=== PATIENT | female | born 1990 | race Caucasian/White ===

== ENCOUNTER 2018-01-30 15:15 | Emergency (ER) | payer BC ==
--- NOTE | 2018-01-30 15:37 | ERPHSYRPT ---
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 she twisted left ankle. Occurred: just prior to arrival Quality: aching Severity of Pain-Max: moderate Severity of Pain-Current: mild Lower Extremities Pain: ankle: left Modifying Factors: Improves With: movement (worsens tenderness) Associated Symptoms: No dizzy, No fainted, No seizure, No snapping sensation, No popping sensation Allergies/Adverse Reactions: No Known Drug Allergies Allergy (Verified 01/30/18 15:32) Home Medications: No Reportable Medications [No Reported Medications] 03/22/15 [History] Hx Tetanus, Diphtheria Vaccination/Date Given: No Hx Influenza Vaccination/Date Given: No Hx Pneumococcal Vaccination/Date Given: No - Review of Systems Constitutional: No Symptoms Eyes: No Symptoms Ears, Nose, & Throat: No Symptoms Respiratory: No Symptoms Cardiac: No Symptoms Abdominal/Gastrointestinal: No Symptoms Genitourinary Symptoms: No Symptoms Musculoskeletal: Fall, Injury (left ankle) Skin: No Symptoms 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: No Symptoms Psychological: No Symptoms Endocrine: No Symptoms Hematologic/Lymphatic: No Symptoms Immunological/Allergic: No Symptoms All Other Systems: Reviewed and Negative - Past Medical History Pertinent Past Medical History: No 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 History: No Pertinent History ENT History: No Pertinent History Cardiac History: No Pertinent History Respiratory History: No Pertinent History Endocrine Medical History: No Pertinent History Musculoskeletal History: Fractures GI Medical History: No Pertinent History History: No Pertinent History Psycho-Social History: No Pertinent History Female Reproductive Disorders: No Pertinent History - Past Surgical History Past Surgical History: Yes Neuro Surgical History: No Pertinent History Cardiac: No Pertinent History Respiratory: No Pertinent History Gastrointestinal: Cholecystectomy Genitourinary: No Pertinent History Musculoskeletal: Orthopedic Surgery Female Surgical History: No Pertinent History Other Surgical History: TONSILLECTOMY - Social History Smoking Status: Never smoker Exposure to second hand smoke: No Drug Use: none Patient Lives Alone: No - Female History Hx Now: No - Nursing Vital Signs Nursing Vital Signs: Initial Vital Signs Temperature 98.1 F 01/30/18 15:24 Pulse Rate 68 01/30/18 15:24 Respiratory Rate 18 01/30/18 15:24 Blood Pressure 160/88 01/30/18 15:24 O2 Sat by Pulse Oximetry 98 01/30/18 15:24 Pain Scale Pain Intensity 8 - Physical Exam General Appearance: no apparent distress, alert Eyes, Ears, Nose, Throat Exam: normal ENT inspection, moist mucous membranes Neck Exam: normal inspection, non-tender, supple, full range of motion Cardiovascular/Respiratory Exam: chest non-tender, normal breath sounds Gastrointestinal/Abdominal Exam: non-tender Back Exam: normal inspection, normal range of motion, No CVA tenderness, No vertebral tenderness Hips Exam: bilateral: non-tender, normal inspection, normal range of motion, no evidence of injury Legs Exam: bilateral leg: non-tender, normal inspection, normal range of motion , no evidence of injury Knees Exam: bilateral knee: non-tender, normal inspection, normal range of motion, no evidence of injury Ankle Exam: right ankle: non-tender, normal inspection, normal range of motion, no evidence of injury, left ankle: soft tissue tenderness, swelling Foot Exam: bilateral foot: non-tender, normal inspection, normal range of motion , no evidence of injury Neuro/Tendon Exam: normal sensation, normal motor functions, normal tendon functions, no evidence tendon injury Mental Status Exam: alert, oriented x 3, cooperative Skin Exam: normal color, warm, dry SpO2 Interpretation: normal SpO2: 98 Oxygen Delivery: Room Air - Course Nursing assessment & vital signs reviewed: Yes Ordered Tests: Active Orders 24 hr Category Date Time Status Cold Application STAT Care 01/30/18 15:26 Active ANKLE (3 VIEWS) Stat Exams 01/30/18 15:37 Completed Medication Summary Discontinued Medications Generic Name Dose Route Start Last Admin Trade Name Freq PRN Reason Stop Dose Admin Hydrocodone Bitart/Acetaminophen 1 tab 01/30/18 16:37 Amasa 5/325 Mg PO 01/30/18 16:38 STAT ONE - Progress Progress: pain not gone completely, re-examined Progress Note: 01/30/18 16:55 left ankle xray- no acute fx or dislocation Counseled pt/family regarding: diagnosis, need for follow-up, rad results - Departure Time of Disposition: 16:55 Departure Disposition: Home Clinical Impression: Ankle sprain Condition: Stable Critical Care Time: No Referrals: GIO HOBSON [Primary Care Provider] - Additional Instructions: use tylenol and ibuprofen for pain. may weight bear as tolerated. wear sophia wrap and use crutches for comfort. follow up with primary doctor for persistent symptoms
[2018-01-30 16:22] VITALS: BP 142/99; PULSE 60
[2018-01-30] MEDS ORDERED: NORCO 5/325 MG PO ONE (16:37)
--- NOTE | 2018-01-30 16:39 | XRAY ---
Indication: Lateral pain following injury. Comparison: February 28, 2011. 3 views of the left ankle demonstrates stable small distal fibula shaft bone island. No new/acute bony, articular, or soft tissue abnormalities.
[2018-01-30] MEDS ORDERED: NORCO 5/325 MG ONE (16:54)
[2018-01-30 16:57] VITALS: O2SAT 98
== END 2018-01-30 17:28 | disposition home or self-care (01) ==
LOC: ED 15:15
DX: S93.402A Sprain of unspecified ligament of left ankle, initial encounter (principal); M25.572 Pain in left ankle and joints of left foot; X50.1XXA Overexertion from prolonged static or awkward postures, initial encounter; Y93.01 Activity, walking, marching and hiking
CPT/HCPCS: 73610; 99284; A9270

== ENCOUNTER 2019-03-17 19:30 | Emergency (ER) | payer BC ==
[2019-03-17] MEDS ORDERED: Sodium Chloride 0.9% 1000 ML 1,000 ML IV STA (19:41)
[2019-03-17] MEDS ORDERED: Zofran 4 MG/2 ML VIAL IV ONE (19:41)
[2019-03-17] MEDS ORDERED: PROVENTIL Solution 2.5 MG/0.5 ML IH ONE (19:44)
[2019-03-17] MEDS ORDERED: Sodium Chloride 0.9% 1000 ML 1,000 ML ONE (19:48)
[2019-03-17] MEDS ORDERED: Zofran 4 MG/2 ML VIAL ONE (19:48)
--- NOTE | 2019-03-17 19:51 | ERPHSYRPT ---
- History of Present Illness Time Seen by Provider: 03/17/19 19:41 Source: patient Physician History: Pt is here with c/c of numbness and tingling of all extremities. Pt can not breath thru her nose and is breathing more rapidly than normal. Pt was here diagnosed Influenza positive on Monday and after that has noticed that her extremities are numb and tingly. Pt also is on Tamiflu 75 mgs twice daily and has been since monday. Pt is coughing some and noting it difficult to breath thru her nose. Pt has not had an inhaler or nose spray. Pt notes that there is no weakness in any of her extremities and there is no difficulty feeling or sensing with her fingers. Timing/Duration: today (Pt is ) Severity: mild Modifying Factors: Improves With: other ( mouth breathing fast may worsen as pt comes in doing this) Associated Symptoms: shortness of breath, cough Allergies/Adverse Reactions: No Known Drug Allergies Allergy (Verified 03/17/19 19:46) Home Medications: Oseltamivir 75 mg [Tamiflu 75MG Capsule] 75 mg PO BID 03/17/19 [History] Hx Tetanus, Diphtheria Vaccination/Date Given: No Hx Influenza Vaccination/Date Given: No Hx Pneumococcal Vaccination/Date Given: No - Review of Systems Constitutional: Fatigue, Weakness Eyes: No Symptoms Ears, Nose, & Throat: No Symptoms Respiratory: Cough, Dyspnea, Other (cont breath thru her nose) Abdominal/Gastrointestinal: No Symptoms Genitourinary Symptoms: No Symptoms Musculoskeletal: No Symptoms Skin: No Symptoms 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: Parasthesia (of all 4 extremities.) Psychological: Anxiety Endocrine: No Symptoms Immunological/Allergic: No Symptoms All Other Systems: Reviewed and Negative - Past Medical History Pertinent Past Medical History: No 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 History: No Pertinent History ENT History: No Pertinent History Cardiac History: No Pertinent History Respiratory History: No Pertinent History Endocrine Medical History: No Pertinent History Musculoskeletal History: Fractures GI Medical History: No Pertinent History History: No Pertinent History Psycho-Social History: No Pertinent History Female Reproductive Disorders: No Pertinent History - Past Surgical History Past Surgical History: Yes Neuro Surgical History: No Pertinent History Cardiac: No Pertinent History Respiratory: No Pertinent History Gastrointestinal: Cholecystectomy Genitourinary: No Pertinent History Musculoskeletal: Orthopedic Surgery Female Surgical History: No Pertinent History Other Surgical History: TONSILLECTOMY - Social History Smoking Status: Never smoker Exposure to second hand smoke: No Drug Use: none Patient Lives Alone: No - Nursing Vital Signs Nursing Vital Signs: Initial Vital Signs Temperature 97.1 F 03/17/19 19:35 Pulse Rate 75 03/17/19 19:35 Respiratory Rate 24 03/17/19 19:35 Blood Pressure 143/94 03/17/19 19:35 O2 Sat by Pulse Oximetry 97 03/17/19 19:35 Pain Scale Pain Intensity 8 - Physical Exam General Appearance: mild distress, anxiety, obese Eye Exam: PERRL/EOMI, eyes nml inspection Ears, Nose, Throat Exam: normal ENT inspection, TMs normal, pharynx normal, moist mucous membranes, other (Pt is mouth breathing and tachepnic by her own accord but not by oxygen demand) Neck Exam: normal inspection, non-tender, supple, No meningismus Respiratory Exam: normal breath sounds, lungs clear Cardiovascular Exam: regular rate/rhythm, normal heart sounds, normal peripheral pulses, No murmur, No friction rub Gastrointestinal/Abdomen Exam: soft, normal bowel sounds, No tenderness Pelvic Exam: not done Rectal Exam: not done Back Exam: normal inspection Extremity Exam: normal inspection, normal range of motion, pelvis stable, parasthesia (pt didn't have any difficulty feeling anything we asked her to do. ) Ordered Tests: Active Orders 24 hr Category Date Time Status EKG-ER Only STAT Care 03/17/19 19:46 Active IV Insertion STAT Care 03/17/19 19:46 Active CHEST 2 VIEWS (PA AND LAT) Stat Exams 03/17/19 19:55 Taken CBC W DIFF Stat Lab 03/17/19 19:59 Completed CMP Stat Lab 03/17/19 19:59 Completed HCG,QUALITATIVE URINE Stat Lab 03/17/19 19:59 Completed Peak Expiratory Flow Rate ONCE RT 03/17/19 20:23 Active Respiratory Therapy Assessment DAILY RT 03/17/19 20:23 Active Medication Summary Discontinued Medications Generic Name Dose Route Start Last Admin Trade Name Freq PRN Reason Stop Dose Admin Albuterol Sulfate 2.5 mg 03/17/19 19:44 03/17/19 19:58 Proventil Solution 2.5 Mg/0.5 Ml IH 03/17/19 19:45 2.5 mg STAT ONE Administration Albuterol Sulfate Confirm 03/17/19 19:55 Proventil 2.5 Mg/3 Ml Neb Administered 12/29/19 19:56 Dose 2.5 mg IH .STK-MED ONE Benzonatate 100 mg 03/17/19 21:08 03/17/19 21:22 Tessalon Perles 100 Mg PO 04/16/19 21:07 100 mg TID PRN PRN Administration COUGH Benzonatate Confirm 03/17/19 21:18 Tessalon Perles 100 Mg Administered 03/17/19 21:19 Dose 100 mg PO .STK-MED ONE Fluticasone Propionate 2 gm 03/17/19 21:06 03/17/19 21:22 Flonase Nasal NS 03/17/19 21:07 2 gm DAILY STA Administration Fluticasone Propionate Confirm 03/17/19 21:18 Flonase Nasal Administered 03/17/19 21:19 Dose 16 gm NS .STK-MED ONE Sodium Chloride 1,000 mls @ 999 mls/hr 03/17/19 19:41 03/17/19 20:54 Sodium Chloride 0.9% 1000 Ml IV 03/17/19 20:41 Infused .Q1H1M STA Infusion Sodium Chloride Confirm 03/17/19 19:48 Sodium Chloride 0.9% 1000 Ml Administered 03/17/19 19:49 Dose 1,000 mls @ ud .ROUTE .STK-MED ONE Loratadine 10 mg 03/17/19 21:08 03/17/19 21:22 Claritin 10 Mg PO 03/17/19 21:09 10 mg STAT ONE Administration Ondansetron HCl 4 mg 03/17/19 19:41 03/17/19 19:53 Zofran 4 Mg/2 Ml Vial IV 03/17/19 19:42 4 mg STAT ONE Administration Ondansetron HCl Confirm 03/17/19 19:48 Zofran 4 Mg/2 Ml Vial Administered 03/17/19 19:49 Dose 4 mg .ROUTE .STK-MED ONE Potassium Chloride 20 meq 03/17/19 20:23 03/17/19 20:29 Klor Con 10 Meq PO 03/17/19 20:24 20 meq STAT ONE Administration Potassium Chloride Confirm 03/17/19 20:25 Klor Con 10 Meq Administered 03/17/19 20:26 Dose 20 meq PO .STK-MED ONE Lab/Rad Data: Laboratory Result Diagrams 03/17/19 19:59 03/17/19 19:59 Laboratory Results 03/17/19 03/17/19 03/17/19 Range/Units 19:59 19:59 19:59 WBC 10.7 H (4.0-10.5) K/mm3 RBC 4.24 (4.1-5.4) M/mm3 Hgb 12.9 (12.0-16.0) gm/dl Hct 38.8 (35-47) % MCV 91.5 (78-100) fl MCH 30.4 (26-32) pg MCHC 33.2 (32-36) g/dl RDW 13.9 (11.5-14.0) % Plt Count 267 (150-450) K/mm3 MPV 9.9 H (6-9.5) fl Gran % 71.1 H (36.0-66.0) % Eos # (Auto) 0.03 (0-0.5) Absolute Lymphs (auto) 1.80 (1.0-4.6) Absolute Monos (auto) 1.23 (0.0-1.3) Lymphocytes % 16.8 L (24.0-44.0) % Monocytes % 11.5 (0.0-12.0) % Eosinophils % 0.3 (0.00-5.0) % Basophils % 0.3 (0.0-0.4) % Absolute Granulocytes 7.62 H (1.4-6.9) Basophils # 0.03 (0-0.4) Sodium 140 (137-145) mmol/L Potassium 3.3 L (3.5-5.1) mmol/L Chloride 105 (98-107) mmol/L Carbon Dioxide 27 (22-30) mmol/L Anion Gap 11.8 (5-15) MEQ/L BUN 10 (7-17) mg/dL Creatinine 0.56 (0.52-1.04) mg/dL Estimated GFR > 60.0 ML/MIN Glucose 103 (74-106) mg/dL Calcium 8.9 (8.4-10.2) mg/dL Total Bilirubin 0.30 (0.2-1.3) mg/dL AST 25 (14-36) U/L ALT 21 (0-35) U/L Alkaline Phosphatase 46 (38-126) U/L Serum Total Protein 7.7 (6.3-8.2) g/dL Albumin 3.9 (3.5-5.0) g/dL Urine HCG, Qual NEGATIVE (Negative) - Departure Departure Disposition: Home Clinical Impression: Influenza A, Hypokalemia, Complaint of paresthesia, Hyperventilation Condition: Good Critical Care Time: No Referrals: GIO HOBSON [Primary Care Provider] - Instructions: Cough, Adult (DC) Additional Instructions: Pt is here with known influenza and hypokalemia. Pt had parasthesias after mouth breathing and hyperventilating a bit. Pt. has improved after an albuterol neb but does not feel that an inhaler is needed for home. She is feeling better and has less numbness and tingling after here and breathing treatment. Pt will need to drink plenty of non-caffienated fluids and continue her meds. Pt may take Shauna D for the congestion and tesselon perles for the cough, and Flonase for the nasal congestion. Pt should eat healthy and get extra rest. You are infectious to others so you still need to avoid being out in public places for a couple more days. Follow up with your primary care doctor in 3-5 days if not improving or return to the Er with emergent medical problems. You will want to have your primary care doctor recheck you potassium in a week or sdo to make sure you are maintaining your normal potassium level. Prescriptions: Benzonatate [Tessalon Perle] 100 mg PO Q8H PRN PRN #21 capsule PRN Reason: Cough Fexofenadine/Pseudoephedrine [Shauna-D 12 Hour Tablet] 1 each PO [id number] PRN 7 Days #14 tab.er.12h PRN Reason: Sinus Congestion
[2019-03-17] MEDS ORDERED: PROVENTIL 2.5 MG/3 ML NEB IH ONE (19:55)
[2019-03-17 20:02] LABS: Absolute Neutrophil Ct (ANC) 7.62 (1.4-6.9); BASOPHIL % 0.3 % (0.0-0.4); Basophil (Absolute #) 0.03 (0-0.4); Eosinophil % 0.3 % (0.00-5.0); Eosinophil (Absolute #) 0.03 (0-0.5); Hematocrit 38.8 % (35-47); Hemoglobin 12.9 gm/dl (12.0-16.0); Lymphocytes % 16.8 % (24.0-44.0); Mean Cell Volume 91.5 fl (78-100); Mean Corpuscular Hemoglobin 30.4 pg (26-32); Mean Corpuscular Hgb Concent. 33.2 g/dl (32-36); Mean Platelet Volume 9.9 fl (6-9.5); Monocyte (Absolute #) 1.23 (0.0-1.3); Monocytes % 11.5 % (0.0-12.0); Neutrophil % 71.1 % (36.0-66.0); Platelet Count 267 K/mm3 (150-450); Red Blood Count 4.24 M/mm3 (4.1-5.4); Red Cell Distribution Width 13.9 % (11.5-14.0); White Blood Count 10.7 K/mm3 (4.0-10.5)
[2019-03-17 20:14] LABS: ALBUMIN 3.9 g/dL (3.5-5.0); ALKALINE PHOSPHATASE 46 U/L (38-126); ANION GAP 11.8 MEQ/L (5-15); BLOOD UREA NITROGEN 10 mg/dL (7-17); CHLORIDE 105 mmol/L (98-107); Calcium 8.9 mg/dL (8.4-10.2); Carbon Dioxide 27 mmol/L (22-30); Creatinine 1 0.56 mg/dL (0.52-1.04); Glucose 103 mg/dL (74-106); Potassium 3.3 mmol/L (3.5-5.1); SGOT/AST 25 U/L (14-36); SGPT/ALT 21 U/L (0-35); SODIUM 140 mmol/L (137-145); Total Protein 7.7 g/dL (6.3-8.2)
[2019-03-17] MEDS ORDERED: Klor Con 10 MEQ PO ONE ×2 (20:23→20:25)
[2019-03-17] MEDS ORDERED: Flonase NASAL NS STA (21:06)
[2019-03-17] MEDS ORDERED: Tessalon Perles 100 MG PO PRN (21:08)
[2019-03-17] MEDS ORDERED: CLARITIN 10 MG PO ONE (21:08)
[2019-03-17] MEDS ORDERED: Tessalon Perles 100 MG PO ONE (21:18)
[2019-03-17] MEDS ORDERED: Flonase NASAL NS ONE (21:18)
[2019-03-17 21:48] VITALS: BP 98/65; PULSE 84; O2SAT 97
--- NOTE | 2019-03-18 08:40 | XRAY ---
Indication: Cough. Influenza. Comparison: December 01, 2015. PA/lateral chest again demonstrates normal heart and lung with left upper lobe calcified granuloma. Bony thorax intact. No new/acute findings.
== END 2019-03-17 21:55 | disposition home or self-care (01) ==
LOC: ED 19:30
DX: J10.1 Influenza due to other identified influenza virus with other respiratory manifestations (principal); E87.6 Hypokalemia; R20.2 Paresthesia of skin; R06.4 Hyperventilation
CPT/HCPCS: 36000; 36415; 71046; 80053; 84703; 85025; 93005; 94150; 94640; 96360; 96374; 99284; J2405; J7609; A9270-GY

== ENCOUNTER 2020-10-16 19:37 | Emergency (ER) | payer BC ==
--- NOTE | 2020-10-16 20:20 | ERPHSYRPT ---
- History of Present Illness Time Seen by Provider: 10/16/20 20:18 Source: patient Exam Limitations: no limitations Patient Subjective Stated Complaint: "In emotionally numb." Triage Nursing Assessment: Patient reported that she recently had thoughts about killing herself. She reported that she is under a lot of stress because her family does not want her to her current fiance. She denied any plans for suicide or past attempts. Denied any alcohol or drugs. She reported that the stress is getting to be too much for her. Fiance is in the room and supportive. She currently does not have a counselor. Her concern is that she has a 5 y/o at home and does not want to leave her. Pupils 3mm bilateral. Symmetrical chest expansion. Heart tones RRR. Lungs vesicular. Peripheral pulses +3 bilateral. Gait steady without complications. Physician History: Patient reported that she recently had thoughts about killing herself. She reported that she is under a lot of stress because her family does not want her to her current fiance. She denied any plans for suicide or past attempts. Denied any alcohol or drugs. She reported that the stress is getting to be too much for her. Fiance is in the room and supportive. She currently does not have a counselor. Her concern is that she has a 5 y/o at home and does not want to leave her. Timing/Duration: yesterday Severity of Symptoms-Max: moderate Severity of Symptoms-Current: moderate Context related to: parent Suicidal thoughts: gesture Associated Symptoms: angry, agitated, depressed, frustrated, suicidal ideation, No impaired concentration, No ingestion, No insomnia, No paranoid Previous symptoms: no prior history Allergies/Adverse Reactions: No Known Drug Allergies Allergy (Verified 10/16/20 19:54) Home Medications: No Reportable Medications [No Reported Medications] 10/16/20 [History] Hx Tetanus, Diphtheria Vaccination/Date Given: Yes Hx Influenza Vaccination/Date Given: Yes Hx Pneumococcal Vaccination/Date Given: No Travel Risk - International Travel Have you traveled outside of the country in past 3 weeks: No - Coronavirus Screening Are you exhibiting any of the following symptoms?: No Close contact with a COVID-19 positive Pt in past 14-21 Days: No - Vaccine Status Have you recieved a Covid-19 vaccination: Yes 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[employer] - Vaccination Dates Dates if Unknown: May - Past Medical History Pertinent Past Medical History: No 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 History: No Pertinent History ENT History: No Pertinent History Cardiac History: No Pertinent History Respiratory History: No Pertinent History Endocrine Medical History: No Pertinent History Musculoskeletal History: Fractures GI Medical History: No Pertinent History History: No Pertinent History Psycho-Social History: No Pertinent History Female Reproductive Disorders: No Pertinent History - Past Surgical History Past Surgical History: Yes Neuro Surgical History: No Pertinent History Cardiac: No Pertinent History Respiratory: No Pertinent History Gastrointestinal: Cholecystectomy Genitourinary: No Pertinent History Musculoskeletal: Orthopedic Surgery Female Surgical History: No Pertinent History Other Surgical History: TONSILLECTOMY - Social History Smoking Status: Never smoker Exposure to second hand smoke: No Drug Use: none Patient Lives Alone: No - Female History Hx Last Menstrual Period: 10/12/20 Hx Now: No - Review of Systems Constitutional: No Fever, No Chills Eyes: No Symptoms Ears, Nose, & Throat: No Symptoms Respiratory: No Cough, No Dyspnea Cardiac: No Chest Pain, No Edema, No Syncope Abdominal/Gastrointestinal: No Abdominal Pain, No Nausea, No Vomiting, No Diarrhea Genitourinary Symptoms: No Dysuria Musculoskeletal: No Back Pain, No Neck Pain Skin: No Rash 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: No Dizziness, No Focal Weakness, No Sensory Changes Psychological: Anxiety, Depression, Suicidal Ideations, Emotional Lability Endocrine: No Symptoms All Other Systems: Reviewed and Negative - Nursing Vital Signs Nursing Vital Signs: Initial Vital Signs Temperature 98.3 F 10/16/20 19:37 Pulse Rate 62 10/16/20 19:37 Respiratory Rate 20 10/16/20 19:37 Blood Pressure 149/91 10/16/20 19:37 O2 Sat by Pulse Oximetry 100 10/16/20 19:37 Pain Scale Pain Intensity 0 - Physical Exam General Appearance: no apparent distress Eyes, Ears, Nose, Throat Exam: normal ENT inspection, moist mucous membranes Neck Exam: normal inspection, non-tender, supple Respiratory Exam: normal breath sounds, lungs clear, No respiratory distress Cardiovascular Exam: regular rate/rhythm, No edema Gastrointestinal/Abdominal Exam: soft, No tenderness, No distention Extremities Exam: normal inspection, normal range of motion, No evidence of injury, No edema Current Suicidality: denies suicide plan 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: 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, 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, oriented x 3 Appearance: appropriate appearance Behavior/Eye Contact/Speech: alert & cooperative, normal speech Thoughts/Hallucinations: normal thought pattern Skin Exam: normal color, warm, dry, No rash SpO2 Interpretation: normal SpO2: 100 O2 Delivery: Room Air - Course Nursing assessment & vital signs reviewed: Yes Ordered Tests: Active Orders 24 hr Category Date Time Status Psychiatric Consult STAT Cons 10/16/20 20:09 Active ACETAMINOPHEN Stat Lab 10/16/20 20:21 Completed CBC W DIFF Stat Lab 10/16/20 20:21 Completed CMP Stat Lab 10/16/20 20:21 Completed CULTURE,URINE Stat Lab 10/16/20 20:09 Received ETHYL ALCOHOL Stat Lab 10/16/20 20:21 Completed HCG QUALITATIVE,SERUM Stat Lab 10/16/20 20:21 Completed SALICYLATE Stat Lab 10/16/20 20:21 Completed UA W/RFX UR CULTURE Stat Lab 10/16/20 20:09 Completed Urine Triage Profile Stat Lab 10/16/20 20:09 Completed Lab/Rad Data: Laboratory Result Diagrams 10/16/20 20:21 10/16/20 20:21 Laboratory Results 10/16/20 10/16/20 10/16/20 Range/Units 20:21 20:21 20:21 WBC 10.3 (4.0-10.5) K/mm3 RBC 4.30 (4.1-5.4) M/mm3 Hgb 12.8 (12.0-16.0) gm/dl Hct 40.2 (35-47) % MCV 93.5 (78-100) fl MCH 29.8 (26-32) pg MCHC 31.8 L (32-36) g/dl RDW 13.2 (11.5-14.0) % Plt Count 408 (150-450) K/mm3 MPV 9.2 (7.5-11.0) fl Gran % 65.5 (36.0-66.0) % Eos # (Auto) 0.11 (0-0.5) Absolute Lymphs (auto) 2.52 (1.0-4.6) Absolute Monos (auto) 0.87 (0.0-1.3) Lymphocytes % 24.5 (24.0-44.0) % Monocytes % 8.5 (0.0-12.0) % Eosinophils % 1.1 (0.00-5.0) % Basophils % 0.4 (0.0-0.4) % Absolute Granulocytes 6.74 (1.4-6.9) Basophils # 0.04 (0-0.4) Sodium 138 (137-145) mmol/L Potassium 3.8 (3.5-5.1) mmol/L Chloride 102 (98-107) mmol/L Carbon Dioxide 23 (22-30) mmol/L Anion Gap 16.5 H (5-15) MEQ/L BUN 11 (7-17) mg/dL Creatinine 0.67 (0.52-1.04) mg/dL Estimated GFR > 60.0 ML/MIN Glucose 89 (74-106) mg/dL Calcium 9.2 (8.4-10.2) mg/dL Total Bilirubin 0.20 (0.2-1.3) mg/dL AST 30 (14-36) U/L ALT 19 (0-35) U/L Alkaline Phosphatase 68 (38-126) U/L Serum Total Protein 8.3 H (6.3-8.2) g/dL Albumin 4.6 (3.5-5.0) g/dL Serum , Qual NEGATIVE (Negative) Urine Color (YELLOW) Urine Appearance (CLEAR) Urine pH (5-6) Ur Specific [place] (1.005-1.025) Urine Protein (Negative) Urine Ketones (NEGATIVE) Urine Blood (0-5) Jayson/ul Urine Nitrite (NEGATIVE) Urine Bilirubin (NEGATIVE) Urine Urobilinogen (0-1) mg/dL Ur Leukocyte Esterase (NEGATIVE) Urine WBC (Auto) (0-5) /HPF Urine RBC (Auto) (0-2) /HPF U Epithel Cells (Auto) (FEW) /HPF Urine Bacteria (Auto) (NEGATIVE) /HPF Urine Mucus (Auto) (NEGATIVE) /HPF Urine Culture Reflexed (NO) Urine Glucose (NEGATIVE) mg/dL Salicylates < 1.0 L (2-20) mg/dL Urine Opiates Level (NEGATIVE) Ur Methadone (NEGATIVE) Acetaminophen < 10 L (10-30) ug/ml Urine Barbiturates (NEGATIVE) Ur Phencyclidine (PCP) (NEGATIVE) Urine Amphetamine (NEGATIVE) U Benzodiazepine Level (NEGATIVE) Urine Cocaine (NEGATIVE) Urine Marijuana (THC) (NEGATIVE) Ethyl Alcohol < 10 (0-10) mg/dL SARS-CoV-2 (PCR) (NEGATIVE) 10/16/20 10/16/20 10/16/20 Range/Units 20:15 20:09 20:09 WBC (4.0-10.5) K/mm3 RBC (4.1-5.4) M/mm3 Hgb (12.0-16.0) gm/dl Hct (35-47) % MCV (78-100) fl MCH (26-32) pg MCHC (32-36) g/dl RDW (11.5-14.0) % Plt Count (150-450) K/mm3 MPV (7.5-11.0) fl Gran % (36.0-66.0) % Eos # (Auto) (0-0.5) Absolute Lymphs (auto) (1.0-4.6) Absolute Monos (auto) (0.0-1.3) Lymphocytes % (24.0-44.0) % Monocytes % (0.0-12.0) % Eosinophils % (0.00-5.0) % Basophils % (0.0-0.4) % Absolute Granulocytes (1.4-6.9) Basophils # (0-0.4) Sodium (137-145) mmol/L Potassium (3.5-5.1) mmol/L Chloride (98-107) mmol/L Carbon Dioxide (22-30) mmol/L Anion Gap (5-15) MEQ/L BUN (7-17) mg/dL Creatinine (0.52-1.04) mg/dL Estimated GFR ML/MIN Glucose (74-106) mg/dL Calcium (8.4-10.2) mg/dL Total Bilirubin (0.2-1.3) mg/dL AST (14-36) U/L ALT (0-35) U/L Alkaline Phosphatase (38-126) U/L Serum Total Protein (6.3-8.2) g/dL Albumin (3.5-5.0) g/dL Serum , Qual (Negative) Urine Color YELLOW (YELLOW) Urine Appearance CLEAR (CLEAR) Urine pH 5.0 (5-6) Ur Specific [place] 1.011 (1.005-1.025) Urine Protein NEGATIVE (Negative) Urine Ketones NEGATIVE (NEGATIVE) Urine Blood MODERATE (0-5) Jayson/ul Urine Nitrite NEGATIVE (NEGATIVE) Urine Bilirubin NEGATIVE (NEGATIVE) Urine Urobilinogen NEGATIVE (0-1) mg/dL Ur Leukocyte Esterase LARGE (NEGATIVE) Urine WBC (Auto) NONE (0-5) /HPF Urine RBC (Auto) 0-2 (0-2) /HPF U Epithel Cells (Auto) RARE (FEW) /HPF Urine Bacteria (Auto) NONE (NEGATIVE) /HPF Urine Mucus (Auto) SLIGHT (NEGATIVE) /HPF Urine Culture Reflexed YES (NO) Urine Glucose NEGATIVE (NEGATIVE) mg/dL Salicylates (2-20) mg/dL Urine Opiates Level NEGATIVE (NEGATIVE) Ur Methadone NEGATIVE (NEGATIVE) Acetaminophen (10-30) ug/ml Urine Barbiturates NEGATIVE (NEGATIVE) Ur Phencyclidine (PCP) NEGATIVE (NEGATIVE) Urine Amphetamine NEGATIVE (NEGATIVE) U Benzodiazepine Level NEGATIVE (NEGATIVE) Urine Cocaine NEGATIVE (NEGATIVE) Urine Marijuana (THC) NEGATIVE (NEGATIVE) Ethyl Alcohol (0-10) mg/dL SARS-CoV-2 (PCR) NEGATIVE (NEGATIVE) - Progress Progress: improved Counseled pt/family regarding: lab results, diagnosis, need for follow-up - Departure Departure Disposition: Home Clinical Impression: Acute stress reaction causing mixed disturbance of emotion and conduct Condition: Stable Critical Care Time: No Referrals: GIO HOBSON [Primary Care Provider] - Instructions: Bipolar Disorder (DC) Additional Instructions: POWER QUINONEZ was seen on 10/16/20 n the Emergency Room. At that time you were treated for an emergent condition, during your visit Laboratory, Radiology and/or other procedures may have been ordered. It is very important that you follow-up with your Primary Care Physician GIO HOBSON within the next 24-48 hours to review your Emergency Room visit and the final results of testing that was ordered. Some test results such as Urine Cultures, Blood Cultures, and other cultures if ordered will not be finalized for 24-48 hours. If you do not have a Primary Care Provider please call the medical records department at [phone] ext [phone] to obtain a copy of your results or you may sign into our patient portal to obtain these results by visiting us @ [email or web address] and completing the following steps: 1. Click on the Patient Portal link 2. Click the Patient Self Enrollment Link to complete the enrollment form and entering your 3. Once the enrollment form is completed you will receive an email with a temporary ID and password at the email address you provided. 4. Next choose a user name and password. Your user name must be at least 4 characters long and your password must be at least 4 characters long. 5. Choose a security question from the list and provide your answer to the question. If you already have signed into the Health Portal you may access your Health Care Information 10/10 by the following steps: 1. Login to our website @ [email or web address] 2. Enter your original user name and password. FAQS The [facility] Health Portal is an online tool that contains your Lab Results, Radiology Reports, Visit History, Discharge Instructions and Health Summary Lab and Radiology Results will not be available for 72 hours on the portal. The Portal is a secure site, passwords are encryted and URLs are re-written so they cannot be copied and pasted. You and authorized family members are the only ones who can access your Portal. Also there is a timeout feature that protects your information if you leave the Portal page open. If you have technical difficulty please use the Contact Us link on the page this will allow you to submit any questions you have regarding the Portal or you may contact the Medical Record Department at [phone].
[2020-10-16 20:32] LABS: Absolute Neutrophil Ct (ANC) 6.74 (1.4-6.9); BASOPHIL % 0.4 % (0.0-0.4); Basophil (Absolute #) 0.04 (0-0.4); Eosinophil % 1.1 % (0.00-5.0); Eosinophil (Absolute #) 0.11 (0-0.5); Hematocrit 40.2 % (35-47); Hemoglobin 12.8 gm/dl (12.0-16.0); Lymphocyte (Absolute #) 2.52 (1.0-4.6); Lymphocytes % 24.5 % (24.0-44.0); Mean Cell Volume 93.5 fl (78-100); Mean Corpuscular Hemoglobin 29.8 pg (26-32); Mean Corpuscular Hgb Concent. 31.8 g/dl (32-36); Mean Platelet Volume 9.2 fl (7.5-11.0); Monocyte (Absolute #) 0.87 (0.0-1.3); Monocytes % 8.5 % (0.0-12.0); Neutrophil % 65.5 % (36.0-66.0); Platelet Count 408 K/mm3 (150-450); Red Cell Distribution Width 13.2 % (11.5-14.0); White Blood Count 10.3 K/mm3 (4.0-10.5)
[2020-10-16 20:47] LABS: ACETAMINOPHEN < 10 ug/ml (10-30); ALBUMIN 4.6 g/dL (3.5-5.0); ALKALINE PHOSPHATASE 68 U/L (38-126); ANION GAP 16.5 MEQ/L (5-15); BLOOD UREA NITROGEN 11 mg/dL (7-17); CHLORIDE 102 mmol/L (98-107); Calcium 9.2 mg/dL (8.4-10.2); Carbon Dioxide 23 mmol/L (22-30); Creatinine 1 0.67 mg/dL (0.52-1.04); EST GLOMERULAR FILTRATION RATE > 60.0 ML/MIN; ETHYL ALCOHOL < 10 mg/dL (0-10); Glucose 89 mg/dL (74-106); Potassium 3.8 mmol/L (3.5-5.1); SALICYLATE < 1.0 mg/dL (2-20); SGOT/AST 30 U/L (14-36); SGPT/ALT 19 U/L (0-35); SODIUM 138 mmol/L (137-145); Total Protein 8.3 g/dL (6.3-8.2)
[2020-10-16 21:02] LABS: Appearance CLEAR (CLEAR); Bilirubin NEGATIVE (NEGATIVE); Blood MODERATE Ery/ul (0-5); Epithelial Cells RARE /HPF (FEW); Glucose NEGATIVE (NEGATIVE); Ketones NEGATIVE (NEGATIVE); Leukocyte Esterase LARGE (NEGATIVE); Mucus SLIGHT /HPF (NEGATIVE); Nitrite NEGATIVE (NEGATIVE); Protein,Urine Dip NEGATIVE (Negative); RBC 0-2 /HPF (0-2); Specific Gravity 1.011 (1.005-1.025); Urobilinogen NEGATIVE mg/dL (0-1)
[2020-10-16 21:07] LABS: Amphetamine,Urine NEGATIVE (NEGATIVE); Barbiturate,Urine NEGATIVE (NEGATIVE); Benzodiazepine,Urine NEGATIVE (NEGATIVE); Cocaine,Urine NEGATIVE (NEGATIVE); Methadone,Urine NEGATIVE (NEGATIVE); Opiate,Urine NEGATIVE (NEGATIVE); PCP,Urine NEGATIVE (NEGATIVE); THC,Urine NEGATIVE (NEGATIVE)
[2020-10-17 00:56] VITALS: BP 129/90; PULSE 53; O2SAT 100
== END 2020-10-17 00:56 | disposition home or self-care (01) ==
LOC: ED 19:37
DX: F43.0 Acute stress reaction (principal); F91.8 Other conduct disorders
CPT/HCPCS: 36415; 80053; 80307; 81001; 81025; 85025; 87086; 90791; 99284; Q3014; U0003; G0480

== ENCOUNTER 2022-02-08 17:22 | Emergency (ER) | payer BC ==
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
[2022-02-08 19:23] VITALS: PULSE 68
[2022-02-08 20:06] VITALS: BP 136/81; O2SAT 99
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
== END 2022-02-08 20:24 | disposition home or self-care (01) ==
LOC: ED 17:22
DX: S00.33XA Contusion of nose, initial encounter (principal); S00.83XA Contusion of other part of head, initial encounter; V49.40XA Driver injured in collision with unspecified motor vehicles in traffic accident, initial encounter; R51.9 Headache, unspecified
CPT/HCPCS: 70450; 70486; 72125; 99283